=== PATIENT | male | born 1985 | race Caucasian/White ===

== ENCOUNTER 2016-11-22 20:59 | Emergency (ER) | payer SELFPAY ==
[~2016-11-22] VITALS: Ht 167.6 cm; Wt 77.1 kg
[2016-11-22 21:14] VITALS: BP 97/51
--- NOTE | 2016-11-23 01:00 | NUR ---
CALLED PT AT 0100 WITH NO ANSWER. ALSO CHECKED SURROUNDING AREAS OUTSIDE.PATIENT LEFT WITHOUT BEING SEEN BY DR. LABOY. NO FURTHER CARE PROVIDED FOR PATIENT.
== END 2016-11-23 01:00 | disposition left against medical advice (07) ==
LOC: MED 20:59
DX: R25.1 Tremor, unspecified (principal); Z53.21 Procedure and treatment not carried out due to patient leaving prior to being seen by health care provider

== ENCOUNTER 2018-07-07 14:17 | Emergency (ER) | payer OTHER ==
[~2018-07-07] VITALS: Ht 170.2 cm; Wt 65.8 kg
--- NOTE | 2018-07-07 14:18 | NUR ---
PT BIBA BLS TO BED 7
[2018-07-07 14:24] VITALS: BP 123/78
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
--- NOTE | 2018-07-07 14:33 | NUR ---
Patient being evaluated by physician at bedside.
[2018-07-07] MEDS ORDERED: KETOROLAC 60 MG/2 ML VIAL IM ONE (14:40)
[2018-07-07] MEDS ORDERED: LIDOCAINE 1% 500 MG/50 ML VIAL INJ SCH (14:40)
[2018-07-07 16:15] VITALS: BP 116/70
--- NOTE | 2018-07-07 16:15 | NUR ---
Patient discharged with v/s stable. Written and verbal after care instructions given and explained. Patient alert, oriented and verbalized understanding of instructions. Ambulatory with steady gait. All questions addressed prior to discharge. ID band removed. Patient advised to follow up with PMD. Rx of Bartley and Naprosyn given. Patient educated on indication of medication including possible reaction and side effects. Opportunity to ask questions provided and answered.
== END 2018-07-07 16:15 | disposition home or self-care (01) ==
LOC: MED 14:17
DX: M62.830 Muscle spasm of back (principal)
CPT/HCPCS: 20552; 96372; 99284; J1885; J2001